=== PATIENT | female | born 1930 | race Caucasian/White ===

== ENCOUNTER → 2016-10-26 | Outpatient (CLI) | payer MEDICARE, OTHER ==
[~2016-10-26] MED LIST: ASPI1TAB69 PO; CARV3.125 PO; MULTTAB67 PO; ZOCO5TAB PO
[2016-10-26 11:21] LABS: HEMATOCRIT 43.6 % (35.0-46.0); MEAN CELL VOLUME 91.4 FL (80.0-100.0); MEAN CORPUSCULAR HEMOGLOBIN 29.5 PG (27.0-34.0); MEAN CORPUSCULAR HGB CONC 32.3 % (32.0-36.0); PLATELET COUNT 288 TH/MM3 (150-450); RED BLOOD COUNT 4.77 MIL/MM3 (4.00-5.30); RED CELL DISTRIBUTION WIDTH 14.2 % (11.6-17.2); REVIEW FLAG FINAL; WHITE BLOOD COUNT 8.2 TH/MM3 (4.0-11.0)
== END ==
LOC: PHPRE 10:48
PROVIDERS: ATTEND Ophthalmology
DX: Z01.812 Encounter for preprocedural laboratory examination (principal)
CPT/HCPCS: 36415; 85027

== ENCOUNTER → 2016-11-09 | Day surgery (SDC) | payer MEDICARE, OTHER ==
--- NOTE | 2016-10-27 12:26 | MH ---
cc: ADAL TABARES DATE OF ADMISSION: 11/09/2016 ADMISSION DIAGNOSIS Cataract left eye. HISTORY OF PRESENT ILLNESS This 86-year-old white female is coming through [facility] for the purpose of a lens extraction of the left eye with intraocular lens implant under local anesthesia. She has noticed decreasing visual acuity interfering with her daily activities and elected to have the above procedure. Her best corrected visual acuity in room light is 20/70 in each eye. PAST MEDICAL HISTORY The patient has a history of bladder cancer. PAST SURGICAL HISTORY 1. Bladder surgery. 2. Tubal . ] 3. Oophorectomy. 4. Hysterectomy. 5. Tonsillectomy. 6. Lumpectomy. 7. Basal cell carcinoma removal of the left lower lid. DAILY MEDICATIONS 1. Magnesium. 2. Carvedilol. 3. Nitroglycerin. 4. Simvastatin. 5. Richelle. 6. Theology bladder. 7. History of taking baby aspirin. 8. Multivitamins. 9. Calcium. ALLERGIES SULFA. ERYTHROMYCIN. SOCIAL HISTORY She does not smoke and drinks alcohol socially. FAMILY HISTORY Noncontributory. REVIEW OF SYSTEMS HEAD: Patient denies severe headaches, dizziness or recent head injury. EARS: Patient denies hearing loss, ear pain, discharge or ringing in the ears. NOSE: Patient denies nasal discharge, obstruction or frequent colds. MOUTH AND THROAT: Patient denies soreness of the mouth or tongue, bleeding gums, trouble swallowing, changes in voice or sore throat. NECK: Patient denies neck pain or swelling, limitation of neck movement or neck injury. CARDIOPULMONARY SYSTEM: Patient denies shortness of breath, orthopnea, chronic cough, sputum production, hemoptysis, chest pain, wheezing, palpitations or light-headedness. GI SYSTEM: Patient denies poor appetite, nausea, vomiting, abdominal pain, ulcers, hemorrhoids or change in bowel habits. SYSTEM: The patient denies urinary frequency, dysuria, change in urine color. NERVOUS SYSTEM: Patient denies convulsions, vertigo, stroke, numbness or weakness. PHYSICAL EXAMINATION VITAL SIGNS: Blood pressure 142/80, pulse 56, respirations 20. HEAD: Normocephalic, atraumatic. NOSE: Without rhinorrhea. THROAT: Clear. NECK: Supple. CHEST: Clear. HEART: Regular rhythm. ABDOMEN: Without tenderness. EXTREMITIES: Without edema. NEUROLOGIC: Within normal limits. MENTAL STATUS: Within normal limits. EYE EXAMINATION The patient's best corrected visual acuity in room light is 20/70 in each eye. Visual agarwal are full to confrontation testing. Extraocular muscle exam reveals full versions with orthophoria at distance and near. Pupils are 2.5 mm, equal, round, and reactive to light without afferent defect. Anterior segment examination reveals corneal guttae present bilaterally. Dermatochalasis of the eyelid skin is present. There are narrow anterior chamber angles in each eye. 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 Nuclear sclerotic and cortical cataract is present bilaterally. Intraocular pressure is 13 in the right eye and 14 in the left by applanation tonometry. Dilated fundus exam revealed sharp disks with cup-to-disk disk ratio of 0.4 bilaterally. There is drusen in the macula of each eye. 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 It is one disk diameter in size. A posterior vitreous detachment is present bilaterally. IMPRESSION 1. Bilateral cataracts. 2. Narrow anterior chamber angles. 3. 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 4. Posterior vitreous detachment both eyes. 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 PLAN The plan is for lens extraction of the left eye with intraocular lens implant under local anesthesia through [facility]. Iris retractors may be needed in this patient whose pupils do not dilate perfectly well. She has been counseled as to the risks, benefits and alternatives and elected to proceed. I feel that cataract surgery will improve the quality of life and activities of daily living in this patient. MD GLENIS Agustin/PARKER /12:02 PM /12:12 PM
[~2016-11-09] VITALS: Ht 167.6 cm; Wt 52.7 kg
[~2016-11-09] MED LIST changes: +ACETYLCHOLINE CHL OPHT SOLN 1:100 2 ML VIAL ONE; +CYCLOPENTOLATE HCL 1% OPHT SOLN 2 ML BTL ONE; +DICLOFENAC SOD 0.1% OPHT SOLN 2.5 ML BTL ONE; +EPINEPHrine HCL (1:1000) 1 MG/ML VIAL ONE; +GATIFLOXACIN 0.5% OPHT SOLN 2.5 ML BTL ONE; +HYALURONIDASE/LIDOCAINE/BUPIVACAINE 4.5 ML SYR ONE; +HYALURONIDASE/LIDOCAINE/BUPIVACAINE 6 ML SYR ONE; +PHENYLEPHRINE HCL 2.5% OPTH SOLN 2 ML BTL ONE; +PROPARACAINE HCL 0.5% OPHT SOLN 15 ML BTL ONE; +PROPOFOL 200 MG/20 ML AMP ONE; +SODIUM CHLORID 0.9% 500 ML INJ 500 ML ONE; +TROPICAMIDE 1% OPHT SOLN 15 ML BTL ONE; +VISCOAT OPHT IRRIG SOLN 0.75 ML SYRINGE LEFT EYE ONE
[2016-11-09 06:38] VITALS: BP 196/85; PULSE 54; PULSE 56; RESP 20; TEMP 97.9; O2SAT 100
[2016-11-09] MEDS: PILOCARPINE HCL 2% OPHT SOLN 15 ML BTL ONE ×2 (08:04→08:41)
[2016-11-09] MEDS: TOBRAMYCIN/DEXAMETHASONE OPTH OINT 3.5 GM TUBE ONE ×2 (08:05→08:41)
[2016-11-09 09:30] VITALS: BP 152/70; PULSE 63; RESP 16; TEMP 98.1; O2SAT 97
--- NOTE | 2016-11-10 11:44 | MP ---
cc: ADAL COTA DATE OF SURGERY: 11/09/2016 PREOPERATIVE DIAGNOSIS: Cataract left eye. POSTOPERATIVE DIAGNOSIS: Cataract left eye. OPERATION: Extracapsular cataract extraction with posterior chamber intraocular lens implant by phacoemulsification, left eye. SURGEON: Adal Cota M.D. ANESTHESIA: Local. COMPLICATIONS: None. INDICATIONS: See history and physical previously dictated. OPERATIVE PROCEDURE: The patient had adequate retrobulbar and eyelid blocks administered in the holding area and was brought to the operating room. The left eye was prepped and draped in the usual sterile ophthalmic manner. A lid speculum was inserted in the left eye. A 4-0 silk bridle suture was placed through the conjunctiva near the superior rectus muscle and it was tagged to the drape. A fornix-based conjunctival flap was prepared spanning approximately 5 mm in width. Hemostasis was obtained with wet-field cautery. A 3.5 mm groove was made 1 mm from the limbus and dissected up to the limbus in the form of a scleral pocket incision. A stab incision was then made at the 2 o'clock position. Viscoelastic was injected into the anterior chamber. In order to maintain an adequately dilated pupil, it was elected to use iris retractors in this case. Stab incisions were made at the 1 o'clock, 3 o'clock, 5 o'clock, 8 o'clock and 10 o'clock positions. Iris retractors were then inserted through the stab incisions in the peripheral cornea and positioned to enlarge the size of the pupil. The anterior chamber was entered with a 2.75 mm keratome through the scleral pocket incision. A 360 degree continuous curvilinear capsulorrhexis was then performed. Hydrodissection was utilized to divide the nucleus into inner and outer components and to separate the cortex from the capsule. Phacoemulsification was then utilized to remove the nucleus. The outer nuclear layer was removed with irrigation and aspiration and short bursts of ultrasound as necessary. The cortex was removed with the irrigation-aspiration handpiece. The posterior capsule was polished with the capsule polisher. Viscoelastic was injected into the capsular bag. The intraocular lens was inspected and found to be in good condition. The lens utilized was a Yuri, model SA60-AT with a power of +24.5 diopters. The lens was inserted into the capsular bag. The five iris retractors were removed. The viscoelastic in the anterior chamber was then removed with the irrigation-aspiration hand piece. Viscoelastic was also removed from beneath the intraocular lens. The anterior chamber was filled with Miochol-E through the stab incision and pressurized. The wound was checked for leaks at this pressure and normalized pressure and there were none. The 4-0 bridle suture was removed. The conjunctival flap was brought down over the wound and secured with cautery. Pilocarpine 2% eye drops were instilled topically. The lid speculum was removed. TobraDex ophthalmic ointment was applied. The eye was double patched and shielded. The patient tolerated the procedure well and left the Operating Room in satisfactory condition. MD GLENIS Agustin/gwyn /8:55 AM /11:41 AM
== END | disposition home or self-care (01) ==
LOC: PHSDC 06:05
PROVIDERS: ATTEND Ophthalmology
DX: H25.12 Age-related nuclear cataract, left eye (principal)
CPT/HCPCS: 00142; 66984; J0171; J7040; V2632